=== PATIENT | female | born 1995 | race Caucasian/White ===

== ENCOUNTER → 2020-04-17 12:24 | Observation (INO) ==
[2020-04-17 11:01] LABS: Bilirubin,Urine Negative (Negative); Blood,Urine Negative (Negative); Clarity,Urine Ex.Turbid (Clear); Color,Urine Yellow (Yellow); Glucose,Urine (UA) Normal (Normal); Ketones,Urine Negative (Negative); Leukocyte Esterase,Urine Large (Negative); Nitrite,Urine Negative (Negative); Protein,Urine 70 mg/dL (Neg-Trace); Specific Gravity,Urine 1.023 (1.010-1.025)
[2020-04-17 11:12] LABS: Squamous Epithelial Cell,Urine Few per hpf (None-Few)
[2020-04-17 11:13] LABS: Amorphous Sediment,Urine Few per hpf (None-Few); Trichomonas,Urine Present (None Seen)
[2020-04-17 11:15] LABS: Bacteria,Urine Few per hpf (None-Few)
[2020-04-17 13:01] LABS: Candida DNA Not Detected (Not Detect); Gardnerella DNA Not Detected (Not Detect); Trichomonas DNA DETECTED (Not Detect)
== END | disposition home or self-care (01) ==
LOC: 1NENULAB
PROVIDERS: ADMIT Obstetrics & Gynecology; ATTEND Obstetrics & Gynecology

== ENCOUNTER 2020-06-08 17:42 | Inpatient (IN) ==
[2020-06-08] MEDS ORDERED: Metoclopramide 10 MG/2 ML VIAL IVP PRN (17:48)
[2020-06-08] MEDS ORDERED: Ondansetron 4 MG/2 ML VIAL IVP PRN (17:48)
[2020-06-08] MEDS ORDERED: Naloxone 0.4 MG/ML INJ IVP PRN (17:48)
[2020-06-08] MEDS ORDERED: Azithromycin 500 MG in 0.9 % Sodium Chloride 250 ML IVPB ONE (17:48)
[2020-06-08] MEDS ORDERED: Famotidine 20 MG/2 ML VIAL IVP PRN (17:48)
[2020-06-08] MEDS ORDERED: Ringers Solution, Lactated 1,000 ML IVC SCH (18:00)
[2020-06-08] MEDS ORDERED: Oxytocin 20 units/ LR 1000 mL 20 UNIT/1,000 ML BAG IVC SCH ×2 (18:00→22:48)
[2020-06-08] MEDS ORDERED: Ringers Solution, Lactated 1,000 ML ONE (18:05)
[2020-06-08] MEDS ORDERED: EPHEDrine 50 MG/ML VIAL IVP PRN (18:25)
[2020-06-08] MEDS ORDERED: Bupivacaine-MPF 0.25% 10 ML VIAL EP ONE (18:25)
[2020-06-08] MEDS ORDERED: *HR* FentaNYL (PF) 100 MCG/2 ML VIAL EP ONE (18:25)
[2020-06-08] MEDS ORDERED: Epidural Premix (fent/bupiv) 110 ML EP SCH (18:30)
[2020-06-08 18:57] LABS: Basophils % 0.2 %; Eosinophils % 0.2 %; Hematocrit 32.3 % (35.3-44.9); Hemoglobin 10.4 g/dL (11.5-15.4); Immature Granulocytes % 0.2 % (0-4); Lymphocytes # 1.8 K/mcL (0.6-4.6); Lymphocytes % 14.3 %; Mean Corpuscular HGB Conc 32.2 g/dL (31.6-35.5); Mean Corpuscular Hemoglobin 30.1 pg (28.0-33.3); Mean Corpuscular Volume 93.6 fL (83.0-100.0); Mean Platelet Volume 10.5 fL (9.4-12.4); Monocytes # 0.8 K/mcL (0.0-1.3); Monocytes % 6.1 %; Neutrophils # 10.2 K/mcL (1.6-8.9); Platelet Count 273 K/mcL (140-400); Red Blood Count 3.45 M/mcL (3.82-4.97); Red Cell Distribution Width 13.3 % (11.5-14.5); White Blood Count 12.9 K/mcL (4.3-11.1)
[2020-06-08 19:48] LABS: Amphetamine Screen,Urine Negative ng/mL (Cutoff=1000); Barbiturate Screen,Urine Negative ng/mL (Cutoff=200); Benzodiazepines Screen,Urine Negative ng/mL (Cutoff=200); Cannabinoid Screen,Urine Positive ng/mL (Cutoff = 50); Cocaine Screen,Urine Negative ng/mL (Cutoff= 300); Opiate Screen,Urine Negative ng/mL (Cutoff=300); Phencyclidine Screen,Urine Negative ng/mL (Cutoff=25)
[2020-06-08] MEDS ORDERED: Lanolin 7 G OINT...G. TP PRN (22:48)
[2020-06-08] MEDS ORDERED: Sennosides 8.6 MG TABLET PO PRN (22:48)
[2020-06-08] MEDS ORDERED: Benzocaine/Menthol 56 GM AEROSOL SPRAY TP PRN (22:48)
[2020-06-09] MEDS: Ibuprofen 600 MG TABLET PO PRN ×3 (04:53→19:52)
[2020-06-09 04:56] LABS: Basophils % 0.1 %; Eosinophils # 0.1 K/mcL (0.0-0.6); Eosinophils % 0.4 %; Hematocrit 26.3 % (35.3-44.9); Immature Granulocytes % 0.4 % (0-4); Lymphocytes # 2.3 K/mcL (0.6-4.6); Lymphocytes % 16.9 %; Mean Corpuscular HGB Conc 33.1 g/dL (31.6-35.5); Mean Corpuscular Hemoglobin 30.3 pg (28.0-33.3); Mean Corpuscular Volume 91.6 fL (83.0-100.0); Mean Platelet Volume 10.3 fL (9.4-12.4); Monocytes % 7.1 %; Neutrophils # 10.4 K/mcL (1.6-8.9); Platelet Count 232 K/mcL (140-400); Red Blood Count 2.87 M/mcL (3.82-4.97); Segmented Neutrophils % 75.1 %; White Blood Count 13.8 K/mcL (4.3-11.1)
[2020-06-09 05:00] LABS: Hemoglobin 8.7 g/dL (11.5-15.4)
[2020-06-09] MEDS: Acetaminophen 325 MG TABLET PO PRN ×2 (08:56→16:21)
[2020-06-09] MEDS ORDERED: Prenatal Vit/FA 1 EACH TABLET PO SCH (09:00)
[2020-06-09 20:04] VITALS: BP 121/80
== END 2020-06-09 23:05 | disposition home or self-care (01) | DRG 560 ==
LOC: 1NENULAB → 1NENUOBS 06-09 00:28
PROVIDERS: ADMIT Obstetrics & Gynecology; ATTEND Obstetrics & Gynecology